=== PATIENT | female | born 1985 | race Caucasian/White ===

== ENCOUNTER 2017-05-20 19:42 | Emergency (ER) | payer MEDICAID ==
[2017-05-20 20:43] VITALS: BP 115/73
== END 2017-05-20 20:43 | disposition home or self-care (01) ==
LOC: ED 19:42
DX: N39.0 Urinary tract infection, site not specified (principal)

== ENCOUNTER 2018-07-09 21:45 | Emergency (ER) | payer MEDICAID ==
[~2018-07-09] VITALS: Ht 154.9 cm; Wt 62.6 kg
[2018-07-09 22:56] LABS: BASOPHIL % 0.5 % (0-2); PLATELET COUNT 259 x10^3mcL (130-400); RED CELL DISTRIBUTION WIDTH 13.5 % (11.5-14.5)
[2018-07-10 00:35] VITALS: BP 112/70
== END 2018-07-10 00:36 | disposition home or self-care (01) ==
LOC: ED 21:45
PROVIDERS: Emergency Medicine
DX: O26.851 Spotting complicating pregnancy, first trimester (principal); O26.891 Other specified pregnancy related conditions, first trimester; O99.281 Endocrine, nutritional and metabolic diseases complicating pregnancy, first trimester; E03.9 Hypothyroidism, unspecified; R10.30 Lower abdominal pain, unspecified; Z3A.01 Less than 8 weeks gestation of pregnancy
CPT/HCPCS: 36415

== ENCOUNTER 2018-09-24 05:23 | Emergency (ER) | payer MEDICAID ==
[~2018-09-24] VITALS: Ht 144.8 cm; Wt 61.2 kg
[2018-09-24 08:23] VITALS: BP 99/62
== END 2018-09-24 08:23 | disposition home or self-care (01) ==
LOC: ED 05:23
DX: S13.4XXA Sprain of ligaments of cervical spine, initial encounter (principal); S63.92XA Sprain of unspecified part of left wrist and hand, initial encounter; S73.101A Unspecified sprain of right hip, initial encounter; S00.83XA Contusion of other part of head, initial encounter; E03.9 Hypothyroidism, unspecified; V89.2XXA Person injured in unspecified motor-vehicle accident, traffic, initial encounter; Y93.I9 Activity, other involving external motion; Y92.413 State road as the place of occurrence of the external cause; Y99.8 Other external cause status

== ENCOUNTER 2019-05-22 00:39 | Emergency (ER) | payer MEDICAID ==
[~2019-05-22] VITALS: Ht 152.4 cm; Wt 66.2 kg
[2019-05-22 01:09] LABS: BASOPHIL % 0.9 % (0-2); PLATELET COUNT 270 x10^3mcL (130-400); RED CELL DISTRIBUTION WIDTH 14.1 % (11.5-14.5)
[2019-05-22 02:47] VITALS: BP 98/56
[2019-05-22 03:09] LABS: microscopic required? YES; urine erythrocyte 3+ (NEGATIVE)
== END 2019-05-22 02:47 | disposition home or self-care (01) ==
LOC: ED 00:39
PROVIDERS: Specialist
DX: O20.0 Threatened abortion (principal); E03.9 Hypothyroidism, unspecified
CPT/HCPCS: 36415; Q0092